=== PATIENT | female | born 2000 | race Caucasian/White ===

== ENCOUNTER 2022-05-14 22:35 | Emergency (ER) | payer BC ==
[2022-05-15 01:41] LABS: HEMOGLOBIN 12.7 gm/dl (12.3-15.3); RED BLOOD COUNT 4.57 M/UL (4.00-5.10); WHITE BLOOD COUNT 15.3 K/UL (4.5-11.0)
[2022-05-15 02:07] LABS: BUN/CREATININE RATIO 19 (0-10)
== END 2022-05-15 03:30 | disposition home or self-care (01) ==
LOC: ER1 22:35
PROVIDERS: Nurse Practitioner
DX: O99.891 Other specified diseases and conditions complicating pregnancy (principal); R03.0 Elevated blood-pressure reading, without diagnosis of hypertension; O99.331 Smoking (tobacco) complicating pregnancy, first trimester; F17.290 Nicotine dependence, other tobacco product, uncomplicated; Z3A.16 16 weeks gestation of pregnancy
CPT/HCPCS: 80053; 81001; 85025; 99283